=== PATIENT | female | born 1985 | race Caucasian/White ===

== ENCOUNTER 2020-09-27 11:41 | Day surgery (SDC) | payer MEDICAID, SELFPAY ==
[2020-09-27] VITALS (8 sets, daily range): BP systolic 116–137; BP diastolic 64–85; PULSE 84–110; RESP 16–20; TEMP 36.5–36.9; O2SAT 94–100; BMI 20.7
--- NOTE | 2020-09-27 12:01 | ED_ITS ---
HPI - General Adult General: Chief complaint: Airway/Esophagus Foreign Body Stated complaint: FB IN THROAT Time Seen by Provider: 09/27/20 11:56 Source: patient Mode of arrival: ambulatory Limitations: no limitations History of Present Illness: HPI narrative: 35-year-old female who states she ate dinner meat last night felt like got stuck in her throat. States she has not been able to swallow any liquids or solids since then. She states she has the sensation of the foreign body in her throat as well. She denies any worsening or improving factors. Denies any vomiting or shortness of breath. Associated symptoms: Deny chest pain, dyspnea, headache(s), nausea, rash or vomiting Review of Systems Const: Denies: fever(s), chills, body aches or change in appetite Eyes: Denies: blurry vision or eye discomfort ENMT: Denies: throat pain or dental pain Card: Denies: chest pain Resp: Denies: dyspnea GI: Denies: abdominal pain, nausea, vomiting or diarrhea : Denies: dysuria Musc: Denies: neck pain or back pain Skin/Breast: Denies: rash Neuro: Denies: headache(s) Psych: Denies: depression Reinaldo/Lymph: Denies: easy bruising All/Imm: Denies: urticaria Physical Exam Const: COMMON NORMALS: no acute distress, patient oriented x3 and healthy appearing HENMT: COMMON NORMALS: normocephalic and atraumatic HEAD & SCALP: normocephalic and atraumatic Eye: COMMON NORMALS: Equal, round and reactive pupils present and EOMs intact bilaterally PUPIL: Yes Equal, round and reactive pupils present Neck/C-Spine: COMMON NORMALS: full ROM and supple Chest: COMMONS NORMALS: normal inspection of the chest and normal palpation of entire chest wall Resp: COMMON NORMALS: normal respiratory effort, No retractions, No use of accessory muscles and clear to auscultation bilaterally AUSCULTATION: clear to auscultation bilaterally Cardio: COMMON NORMALS: regular rate, regular rhythm and No murmurs present (Cardio) RATE: regular rate RHYTHM: regular rhythm GI: COMMON NORMALS: Normal to inspection, nondistended, normoactive bowel sounds present, Soft to palpation, non-tender and no masses PALPATION: Yes Soft to palpation Extremity: COMMON NORMALS: normal to inspection and full ROM Neuro: COMMON NORMALS: patient oriented x3, moves all extremities and no focal motor deficits Psych: COMMON NORMALS: mental status grossly normal, Normal thought process present and cooperative THOUGHT PROCESS: Normal thought process present Skin: COMMON NORMALS: no rashes or lesions noted and no wounds GENERAL SKIN EXAM: no rashes or lesions noted Course Vital Signs: Vital signs: Vital Signs Temperature 97.7 F 09/27/20 11:52 Pulse Rate 96 09/27/20 12:15 Respiratory Rate 18 09/27/20 12:15 Blood Pressure 120/80 09/27/20 12:15 Pulse Oximetry 96 09/27/20 12:15 MDM - General Adult MDM Narrative: Medical decision making narrative: Patient presents here with an esophageal food bolus. I spoke to Dr. Arnett who is going to take her to the GI lab. Patient has been stable while here. Discharge Plan Discharge Prescriptions: No Action Multi For Her 18 mg iron-600 mcg-40 mcg Capsule 1 tab-cap PO DAILY RF: 0 Coding Level of Care Code ED Printed Circuit Board Designer for Chg Fwd Exam Comprehensive
[2020-09-27] MEDS: nitroglycerin 0.4 mg sublingual Tablet SUBLINGUAL (12:17)
[2020-09-27] MEDS: ondansetron 2 mg/ML SDV 2 mL 4 MG IVP (14:13)
--- NOTE | 2020-09-27 14:29 | P.CONIM_ITS ---
Providers/Reason For Consult Consulting Physican/Specialty*: Internal medicine/endoscopy Reason for Consult*: Presumed impacted piece of venison in the lower esophagus. Attending Physician: Jesus Arnett MD History of Present Illness History of Present Illness Anastasiya Robles is a 35 year old female who presents to the emergency depar tment after her last night eating supper and feeling as if a piece of venison that she was eating became lodged in her lower esophagus. She was hopeful that it would dislodge itself overnight, mitchell it seems to have not. She states that she is unable to tolerate any liquids and feels like it still hung in her esophagus. She states that this is happened a few times in the past. She is even had to have her esophagus dilated in the past as well. She says she takes Tums a lot, and the occasional PPI, but takes nothing regularly. Review of Systems General: Reports: 10 or more systems reviewed and unremarkable except in HPI and below Meds/Allergies Home Medications and Allergies Home Medications Medication Instructions Recorded Confirmed Last Taken Type vktywyfoldvo-wwy-abdc-FA-vit K 1 tab-cap PO DAILY 09/27/20 09/27/20 Unknown History [Multi For Her] Allergies Allergy/AdvReac Type Severity Reaction Status Date / Time levofloxacin [From Levaquin] Allergy Jef Verified 09/27/20 11:56 Lip/Tongue/Throat Penicillins Allergy Jef Verified 09/27/20 11:56 Lip/Tongue/Throat Vitals/I&O/Wt Last Vital Signs Temp 97.7 F 09/27/20 11:52 Pulse 110 H 09/27/20 14:09 Resp 18 09/27/20 14:09 BP 127/64 09/27/20 14:09 Pulse Ox 97 09/27/20 14:09 Weight last 48 hrs Weight 140 lb Physical Exam Const: COMMON NORMALS: no acute distress Neck/C-Spine: COMMON NORMALS: no JVD Resp: COMMON NORMALS: normal respiratory effort, No retractions, No use of accessory muscles, clear to auscultation bilaterally and percussion normal AUSCULTATION: clear to auscultation bilaterally PERCUSSION: percussion normal Cardio: COMMON NORMALS: no JVD, regular rate, regular rhythm, S1 normal heart sound present, S2 normal heart sound present, No gallops present (Cardio), No clicks present (Cardio), No murmurs present (Cardio), No rub (Cardio) and Peripheral pulses 2+ throughout RATE: regular rate RHYTHM: regular rhythm HEART SOUNDS: S1 normal heart sound present and S2 normal heart sound present PERIPHERAL PULSES: Peripheral pulses 2+ throughout GI: COMMON NORMALS: Normal to inspection, nondistended, normoactive bowel sounds present, Soft to palpation, non-tender, No hepatosplenomegaly present, no masses and no bruits PALPATION: Yes Soft to palpation and Yes No hepatosplenomegaly present A&P Assessment and plan (1) Esophageal obstruction due to food impaction: Status: Acute Additional A&P Information We will plan for urgent EGD with anesthesia and an airway in the operating room for removal of said foreign body. I informed her that we will probably not do any sort of dilatation on this exam as I expect her esophagus to be swollen and macerated from the long-term impaction of the food. We will have her back and revisit this after we resolve the meat impaction. Coding Level of Care Code Acute Freight Air Brake Fitter for Chg Fwd Exam Detailed Diagnoses Esophageal obstruction due to food impaction K22.2; T18.128A Comment Please allow Gloria Buck to process this consult
--- NOTE | 2020-09-27 14:33 | ANES.PREANE2 ---
Pre-Anesthetic Assessment Pre-Anesthetic Assessment: Height/Weight: Height 1.75 m Weight 63.503 kg Temp Pulse Resp BP Pulse Ox 97.7 F 110 H 18 127/64 97 09/27/20 11:52 09/27/20 14:09 09/27/20 14:09 09/27/20 14:09 09/27/20 14:09 Preop Diagnosis: None Proposed Procedure: Operation Date: 09/27/20 15:00 Proposed Procedures p EGD(Not Applicable) - Jesus Arnett MD Familial anesthetic complications: None Was Beta Aby taken within 24 hours: N/A Last intake: NPO > 8 hrs, but likely food bolus in esophagus Social: Social History: No alcohol and No tobacco Exam: Pre-Anes Outpt Exam: alert, oriented x 3, clear to auscultation bilaterally and regular rate & rhythm Airway: Cervical ROM: WNL MP: 1 Dentition: Full Anesthetic Plan: ASA status: 1 Anesthesia: General Risk of > 500 ml blood loss (7ml/kg in children): No Data Anesthesia Cardiac Studies: No Data to Display
[2020-09-27 14:35] LABS: OR HCG Qualitative Urine Negative (Negative)
[2020-09-27] MEDS: sodium chloride 0.9% 1,000 ML 30 ML IV (14:54)
== END 2020-09-27 17:14 | disposition home or self-care (01) ==
LOC: ER 12:05 → GILAB 13:24
PROVIDERS: Emergency Provider Emergency Medicine; Visit Provider Internal Medicine
PROC: 0DJ08ZZ Inspection of Upper Intestinal Tract, Via Natural or Artificial Opening Endoscopic (ICD-10-PCS; CPT 43235; principal; 2020-09-27 15:00)
DX: T18.128A Food in esophagus causing other injury, initial encounter (principal); X58.XXXA Exposure to other specified factors, initial encounter; K22.2 Esophageal obstruction
CPT/HCPCS: 12345; 43247; 84703; 96372; 99282; J0330; J1100; J1610; J2405; J2704; J7030

== ENCOUNTER → 2021-11-23 09:40 | Outpatient (BNVA) | payer BC, MEDICAID, SELFPAY | PROVIDERS: PCP Family Medicine; Visit Provider Internal Medicine | DX: Z20.822 Contact with and (suspected) exposure to COVID-19 (principal) | CPT/HCPCS: 87635 ==

== ENCOUNTER 2021-11-29 05:59 | Day surgery (SDC) | payer BC, MEDICAID, SELFPAY ==
[2021-11-24 14:02] VITALS: BMI 23.6
[2021-11-29 06:12] VITALS: BP 139/99; PULSE 78; RESP 18; TEMP 36.8; O2SAT 98
[2021-11-29 06:22] LABS: OR HCG Qualitative Urine Negative (Negative)
[2021-11-29] MEDS: sodium chloride 0.9% 1,000 ML 30 ML IV (06:28)
--- NOTE | 2021-11-29 06:54 | ANES.PREANE2 ---
Pre-Anesthetic Assessment Pre-Anesthetic Assessment: Height/Weight: Height 1.75 m Weight 72.575 kg Temp Pulse Resp BP Pulse Ox 98.2 F 78 18 139/99 98 11/29/21 06:12 11/29/21 06:12 11/29/21 06:12 11/29/21 06:12 11/29/21 06:12 Preop Diagnosis: esoph ring Proposed Procedure: Operation Date: 11/29/21 07:00 Proposed Procedures p Esophageal with bougie dilatation 97729/ K22.2(Not Applicable) - Jesus Arnett MD Familial anesthetic complications: none Was Beta Aby taken within 24 hours: N/A Was Clonidine taken within 24 hours: N/A Last intake: Intake Last Liquid Date 11/29/21 Last Liquid Time 20:00 Last Solid Date 11/28/21 Last Solid Time 18:30 Last Intake: 20:00 Social: Social History: No alcohol and No tobacco Exam: Pre-Anes Outpt Exam: alert, oriented x 3, clear to auscultation bilaterally and regular rate & rhythm Airway: Submandibular: WNL Cervical ROM: WNL MP: 1 Dentition: Full Pulmonary: Pulmonary: None reported CV/HEM: CV/HEM: None reported : : None reported Hepatic: Hepatic: None reported GI: GI: GERD Metabolic: Metabolic: None reported Musc/skel: Musc/skel: None reported Neuropsych: Neuropsych: GRAVES (every 2-3 months) Anesthetic Plan: ASA status: 1 Anesthesia: MAC Medications/Allergies Current Medications: Current Medications Generic Name Dose Route Start Last Admin Trade Name Freq PRN Reason Stop Dose Admin Sodium Chloride 1,000 mls @ 30 ml s/hr 11/29/21 06:15 11/29/21 06:28 Sodium Chloride 0.9% IV 30 mls/hr .Q24H SILVERIO Administration PFSH Anesthesia PFSH: Medical History Esophageal obstruction due to food impaction Family History Mother Cancer Grandmother Cancer Heart disease Grandfather Heart disease Social History Smoking and tobacco status: never smoked Adopted: No Marital status: Number of children: 4 service: No History of recent travel: No Current gender identity: Female Data Anesthesia Other Labs: Laboratory Results - last 48 hr 11/29/21 06:21 Urine HCG, Qual Negative Cardiac Studies: No Data to Display
--- NOTE | 2021-11-29 07:07 | W.PM.OPSFHP ---
Same Day Surgery H&P Indication for Procedure/HPI DATE OF PROCEDURE: November 29, 2021 CHIEF COMPLAINT/INDICATIONFOR SURGICAL PROCEDURE: Esophageal ring PREOP DIAGNOSIS: esoph ring PLANNED PROCEDURE: Operation Date: 11/29/21 07:00 Proposed Procedures p Esophageal with bougie dilatation 84774/ K22.2(Not Applicable) - Jesus Arnett MD Medications/Allergies* Home Medications Medication Instructions Recorded Confirmed Type Multi For Her 1 tab-cap PO DAILY 09/27/20 11/29/21 History Allergies/Adverse Reactions Allergy/AdvReac Type Severity Reaction Status Date / Time levofloxacin [From Levaquin] Allergy ALGY-Swell Verified 09/30/21 13:03 Lip/Tongue/Throat Penicillins Allergy ALGY-Swell Verified 09/30/21 13:03 Lip/Tongue/Throat Current Medications: Generic Name Dose Route Start Last Admin Trade Name Freq PRN Reason Stop Dose Admin Sodium Chloride 1,000 mls @ 30 mls/hr 11/29/21 06:15 11/29/21 06:28 Sodium Chloride 0.9% IV 30 mls/hr .Q24H SILVERIO Administration Pertinent History/Comorbid Conditions* Medical History (Updated 09/30/21 @ 13:35 by Jesus Arnett MD) Esophageal obstruction due to food impaction Family History (Updated 10/12/20 @ 15:24 by RICARDO Montelongo) Heart disease Grandmother Grandfather Cancer Mother Grandmother Social History Smoking and tobacco status: never smoked Adopted: No Marital status: Number of children: 4 service: No History of recent travel: No Current gender identity: Female Pertinent Exam Findings alert, oriented x 3, clear to auscultation bilaterally, regular rate & rhythm, operative site marked and procedure specific exam findings Recommendations Surgery/Procedure today Coding Level of Care Code Acute Grain Oilseed Or Pasture Grower for Mauricio Giang
[2021-11-29 07:25] VITALS: BP 105/80; PULSE 96; RESP 18; TEMP 36.6; O2SAT 97
[2021-11-29 07:45] VITALS: BP 105/82; PULSE 83; RESP 16; O2SAT 98
--- NOTE | 2021-11-29 14:11 | ANE.PACU2 ---
Inpatient post-anesthesia follow up: Airway intact: Yes Vital signs: Temperature 97.8 F Pulse Rate 83 Respiratory Rate 16 Blood Pressure 105/82 Pulse Oximetry 98 Oxygen Delivery Me thod Room Air Oxygen Flow Rate Fraction of Inspir ed Oxygen Hydration adequate: Yes Nausea and vomiting: No Pain level: 1 Mental status: Baseline
== END 2021-11-29 07:49 | disposition home or self-care (01) ==
PROVIDERS: Anesthesiology; PCP Family Medicine; Visit Provider Internal Medicine
DX: K22.2 Esophageal obstruction (principal); K29.70 Gastritis, unspecified, without bleeding; K21.9 Gastro-esophageal reflux disease without esophagitis
CPT/HCPCS: 43235; 81025; 84703; J2704; J7030

== ENCOUNTER 2021-12-08 11:21 | Outpatient (CLI) | payer BC, MEDICAID, SELFPAY ==
--- NOTE | 2021-12-08 11:32 | XR_ITS ---
WS: [id number] Acute abdomen series, 12/08/2021 Clinical Data: ACUTE CYSTITIS Comparison: KUB, 01/02/2012. Findings: In the chest there are no nodules, masses or effusions. The heart is normal. The pulmonary vascularity is not increased. 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 No free air is seen beneath the diaphragms. No abnormal intra-abdominal masses or calcifications are seen. There is a moderate amount of fecal material throughout the colon. There are scattered air-flui d levels in the abdomen. XR/XR acute abdomen series 62917 Impression: 1. Negative chest. 2. Moderate amount of fecal material in the colon.
== END 2021-12-08 11:22 | disposition home or self-care (01) ==
LOC: RAD 11:30
PROVIDERS: PCP Family Medicine; Visit Provider Clinical Nurse Specialist Adult Health
DX: N30.00 Acute cystitis without hematuria (principal)
CPT/HCPCS: 74022

== ENCOUNTER 2022-03-20 10:27 | Day surgery (SDC) | payer BC, MEDICAID, SELFPAY ==
[2022-03-20 10:49] VITALS: BP 137/85; PULSE 91; RESP 18; O2SAT 96; BMI 23.6
[2022-03-20 10:55] VITALS: BP 137/93; PULSE 86; RESP 18; TEMP 37.3; O2SAT 99
[2022-03-20 11:02] VITALS: BP 127/68; PULSE 66; RESP 18; TEMP 36.6; O2SAT 96
--- NOTE | 2022-03-20 11:03 | ED_ITS ---
HPI - General Adult General: Chief complaint: Airway/Esophagus Foreign Body Stated complaint: something stuck in throat Time Seen by Provider: 03/20/22 10:39 History of Present Illness: She comes in stating that she had a piece of steak stuck in her throat last night and has not been able to swallow since then. Patient is just spitting up. Denies any problems breathing. Patient has had this happen twice in the past. Last time she had to have scope done to push this down. Associated symptoms: Deny chest pain, dyspnea, headache(s), nausea, rash or vomiting Review of Systems Const: Denies: fever(s), chills or body aches Eyes: Denies: eye discomfort ENMT: Reports: other (Has meat stuck in her throat. This occurred last night.); Denies: throat pain Card: Denies: chest pain Resp: Denies: dyspnea GI: Denies: abdominal pain, nausea or vomiting Skin/Breast: Denies: rash Neuro: Denies: headache(s) Psych: Denies: depression or suicidal ideation PFSH ED PFSH: Medical History Esophageal obstruction due to food impaction Family History Mother Cancer Grandmother Cancer Heart disease Grandfather Heart disease Social History Smoking and tobacco status: never smoked Adopted: No Marital status: Number of children: 4 service: No History of recent travel: No Current gender identity: Female Physical Exam Const: COMMON NORMALS: no acute distress, patient oriented x3 and alert HENMT: COMMON NORMALS: normocephalic and external ears normal HEAD & SCALP: normocephalic EXTERNAL EAR: Yes external ears normal Eye: COMMON NORMALS: EOMs intact bilaterally Neck/C-Spine: COMMON NORMALS: no JVD Resp: COMMON NORMALS: normal respiratory effort and No use of accessory muscles Cardio: COMMON NORMALS: no JVD GI: INSPECTION: Yes normal to inspection Extremity: COMMON NORMALS: normal to inspection and full ROM Neuro: COMMON NORMALS: patient oriented x3 SENSORIUM/ORIENTATION: Yes alert Psych: COMMON NORMALS: mental status grossly normal Skin: COMMON NORMALS: no rashes or lesions noted GENERAL SKIN EXAM: no rashes or lesions noted Course Vital Signs: Vital signs: Vital Signs Pulse Rate 91 03/20/22 10:49 Respiratory Rate 18 03/20/22 10:49 Blood Pressure 137/85 03/20/22 10:49 Pulse Oximetry 96 03/20/22 10:49 MDM - General Adult Medical Decision Making I spoke with Dr. oCle and with Dr. Madison. Dr. Madison is coming in to do a scope on her. Discharge Plan Discharge Condition: Stable Prescriptions: No Action pantoprazole 40 mg tablet,delayed release (DR/EC) 40 mg PO BID Qty: 180 3RF Multi For Her 18 mg iron-600 mcg-40 mcg Capsule 1 tab-cap PO DAILY 0RF Referrals: Bebeto Olivas MD [Primary Care Provider] - Coding Level of Care Code ED Certified Diabetes Educator for Mauricio Giang
[2022-03-20] MEDS: sodium chloride 0.9% 1,000 ML 100 ML IV (11:14)
--- NOTE | 2022-03-20 11:32 | P.CONIM_ITS ---
Providers/Reason For Consult Consulting Physician/Specialty*: Endoscopist Reason for Consult*: Food bolus impaction in esophagus Requesting Physician: Perry Sandhu /Dr. Henry Attending Physician: Moisés Madison MD Primary Care Provider: Bebeot Olivas MD History of Present Illness History of Present Illness Anastasiya Robles is a 37 year old female who presented to the emergency room complaining that food was stuck in her throat. Last night, she was eating steak. She said she took a small bite and she felt to get stuck in her throat. Since that time, she was hoping that it would dislodge without further intervention. Unfortunately, it has not improved throughout the night. She cannot swallow her spit. She has no difficulty breathing. The patient has had multiple episodes of having impactions of food in her e sophagus in the past. She has had 2 other episodes of requiring an EGD to disimpact her food over the last couple of years. Review of Systems General: Reports: 10 or more systems reviewed and unremarkable except in HPI and below Const: Denies: fever(s) Card: Denies: chest pain or irregular heart rhythm Resp: Denies: dyspnea Medications/Allergies Home Medications Medication Instructions Recorded Confirmed Last Taken Type zdgrllanw-kfn-qxya fumarate 18 1 tab-cap PO DAILY 09/27/20 12/30/21 11/28/21 History mg-FA 600 mcg-vit K 40 mcg capsule (Multi For Her) pantoprazole 40 mg tablet,delayed 40 mg PO BID #180 tab 12/30/21 12/30/21 Unknown Rx release Allergies Allergy/AdvReac Type Severity Reaction Status Date / Time levofloxacin [From Levaquin] Allergy ALGY-Swell Verified 12/30/21 13:42 Lip/Tongue/Throat Penicillins Allergy ALGY-Swell Verified 09/30/21 13:03 Lip/Tongue/Throat Current Medications Generic Name Dose Route Start Last Admin Trade Name Freq PRN Reason Stop Dose Admin Sodium Chloride 1,000 mls @ 100 mls/hr 03/20/22 11:15 03/20/22 11:14 Sodium Chloride 0.9% IV 100 mls/hr .Q10H SILVERIO Administration PFSH Acute PFSH: Medical History (Updated 03/20/22 @ 11:37 by Moisés Madison MD) Esophageal obstruction due to food impaction Family History (Updated 03/20/22 @ 11:37 by Moisés Madison MD) Mother Cancer Grandmother Cancer Heart disease Esophageal obstruction due to food impaction Grandfather Heart disease Social History Smoking and tobacco status: never smoked Adopted: No Marital status: Number of children: 4 service: No History of recent travel: No Current gender identity: Female Vitals/I&O/Wt Last Vital Signs Temp 98 F 03/20/22 11:02 Pulse 66 03/20/22 11:02 Resp 18 03/20/22 11:02 BP 127/68 03/20/22 11:02 Pulse Ox 96 03/20/22 11:02 Weight last 48 hrs Weight 160 lb Physical Exam Const: COMMON NORMALS: no acute distress and patient oriented x3 GENERAL APPEARANCE: cooperative, comfortable and well developed HENMT: COMMON NORMALS: normocephalic and moist oral mucous membranes HEAD & SCALP: normocephalic Chest: COMMONS NORMALS: normal inspection of the chest Resp: COMMON NORMALS: normal respiratory effort and clear to auscultation bilaterally AUSCULTATION: clear to auscultation bilaterally Cardio: COMMON NORMALS: regular rate, regular rhythm, No gallops present (Cardio), No murmurs present (Cardio) and No rub (Cardio) RATE: regular rate RHYTHM: regular rhythm Extremity: COMMON NORMALS: normal to inspection Neuro: COMMON NORMALS: patient oriented x3 and no focal motor deficits Skin: COMMON NORMALS: no rashes or lesions noted GENERAL SKIN EXAM: no rashes or lesions noted A&P Assessment and plan (1) Esophageal obstruction due to food impaction: The patient will be given glucagon. If we do not see a response within the next half hour, we will proceed with an EGD. Given her history of glucagon not being successful, we are proceeding as if it will not be successful at this time. If I am able to easily push the food bolus down through her esophagus, then we will only use light sedation. If that is not successful, we will have the patient intubated, and I will remove the obstruction piecemeal. I discussed the risks of the procedure with the patient and her . We discussed the risks of perforation, bleeding, and aspiration. They had no further questions and wished to proceed. Status: Acute (2) Esophageal ring, acquired: Status: Acute (3) GERD (gastroesophageal reflux disease): Status: Acute Consult Attestations Medical Necessity Statement: I anticipate the patient will be discharged home today postprocedure as long as the patient tolerates the procedure well and there are no complications. Coding Level of Care Code Acute Registration Scheduling Specialist for Chg Fwd Diagnoses Esophageal obstruction due to food impaction K22.2; T18.128A Esophageal ring, acquired K22.2 GERD (gastroesophageal reflux disease) K21.9
--- NOTE | 2022-03-20 12:02 | ANES.PREANE2 ---
Pre-Anesthetic Assessment Height/Weight: Height 1.75 m Weight 72.575 kg Temp Pulse Resp BP Pulse Ox 98 F 66 18 127/68 96 03/20/22 11:02 03/20/22 11:02 03/20/22 11:02 03/20/22 11:02 03/20/22 11:02 Preop Diagnosis: esoph ring Operation Date: 03/20/22 12:00 Proposed Procedures p Foreign Body Removal(Not Applicable) - Moisés Madison MD Familial anesthetic complications: None Was Beta Aby taken within 24 hours: N/A Was Clonidine taken within 24 hours: N/A Social No alcohol and No tobacco Exam alert, oriented x 3, clear to auscultation bilaterally and regular rate & rhythm Airway Submandibular: within normal limits Cervical ROM: within normal limits Mallampati: Class II Dentition: full GI Gastroesophageal Reflux Disease esophogeal ring Anesthetic Plan ASA status: 2E Anesthesia: Choice Medications/Allergies Home Medications Medication Instructions Recorded Confirmed Last Taken Type uvztoejwg-icp-ugyr fumarate 18 1 tab-cap PO DAILY 09/27/20 12/30/21 11/28/21 History mg-FA 600 mcg-vit K 40 mcg capsule (Multi For Her) pantoprazole 40 mg tablet,delayed 40 mg PO BID #180 tab 12/30/21 12/30/21 Unknown Rx release Allergies Allergy/AdvReac Type Severity Reaction Status Date / Time levofloxacin [From Levaquin] Allergy BRANDONY-Swell Verified 12/30/21 13:42 Lip/Tongue/Throat Penicillins Allergy ALGY-Swell Verified 09/30/21 13:03 Lip/Tongue/Throat Current Medications Generic Name Dose Route Start Last Admin Trade Name Freq PRN Reason Stop Dose Admin Sodium Chloride 1,000 mls @ 100 mls/hr 03/20/22 11:15 03/20/22 11:14 Sodium Chloride 0.9% IV 100 mls/hr .Q10H SILVERIO Administration PFSH Anesthesia Medical History (Updated 03/20/22 @ 11:37 by Moisés Madison MD) Esophageal obstruction due to food impaction Family History (Updated 03/20/22 @ 11:37 by Moisés Madison MD) Mother Cancer Grandmother Cancer Heart disease Esophageal obstruction due to food impaction Grandfather Heart disease Social History Smoking and tobacco status: never smoked Adopted: No Marital status: Number of children: 4 service: No History of recent travel: No Current gender identity: Female Data Anesthesia Cardiac Studies: No Data to Display
[2022-03-20 12:08] VITALS: BP 136/81; PULSE 101; RESP 16; TEMP 37.2; O2SAT 99
[2022-03-20] MEDS: sodium chloride 0.9% 1,000 ML 30 ML IV (12:15)
[2022-03-20 12:30] VITALS: BP 142/65; PULSE 110; RESP 12; TEMP 36.5; O2SAT 100
--- NOTE | 2022-03-20 12:33 | ANE.PACU2 ---
Inpatient post-anesthesia follow up: Airway intact: Yes Vital signs: Temperature 97.7 F Pulse Rate 110 Respiratory Rate 12 Blood Pressure 142/65 Pulse Oximetry 100 Oxygen Delivery Me thod Room Air Oxygen Flow Rate Fraction of Inspir ed Oxygen Hydration adequate: Yes Nausea and vomiting: No Pain level: 1 Mental status: Baseline
[2022-03-20 12:38] VITALS: BP 101/64; PULSE 95; RESP 16; O2SAT 98
== END 2022-03-20 13:00 | disposition home or self-care (01) ==
LOC: ER 11:04 → GILAB 11:14
PROVIDERS: Emergency Provider Nurse Practitioner Family; PCP Family Medicine; Visit Provider Family Medicine
DX: T18.128A Food in esophagus causing other injury, initial encounter (principal); K22.2 Esophageal obstruction; K21.9 Gastro-esophageal reflux disease without esophagitis
CPT/HCPCS: 12345; 43247; J0330; J1610; J2704; J7030

== ENCOUNTER 2022-04-17 11:01 | Emergency (ER) | payer BC, MEDICAID, SELFPAY ==
[2022-04-17 11:08] VITALS: BP 165/102; PULSE 80; RESP 12; TEMP 36.6; O2SAT 98; BMI 24.3
--- NOTE | 2022-04-17 11:19 | CTR_ITS ---
PROCEDURE INFORMATION: Exam: CT Abdomen And Pelvis Without Contrast Exam date and time: 04/17/2022 12:32 PM Age: 37 years old Clinical indication: Abdominal pain; Flank; Left; Prior surgery; Surgery date: 6+ months; Surgery type: Appy, tubal; Additional info: Flank pain TECHNIQUE: Imaging protocol: Computed tomography of the abdomen and pelvis without contrast. Radiation optimization: All CT scans at this facility use at least one of these dose optimization techniques: automated exposure control; mA and/or kV adjustment per patient size (includes targeted exams where dose is matched to clinical indication); or iterative reconstruction. COMPARISON: CR XR acute abdomen series [id number] 12/08/2021 11:36 AM RADIATION DOSE METRICS: Total DLP (mGy-cm): 961.32 FINDINGS: Liver: Normal. No mass. Gallbladder and bile ducts: Normal. No calcified stones. No ductal dilation. Pancreas: Normal. No ductal dilation. Spleen: Normal. No splenomegaly. Adrenal glands: Normal. No mass. Kidneys and ureters: There is a 3 mm calculus at the left ureterovesical junction with mild hydronephrosis and hydroureter. No calcifications are seen in the kidneys. There is no hydronephrosis on the right side. Stomach and bowel: Unremarkable. No obstruction. No mucosal thickening. Appendix: No evidence of appendicitis. Intraperitoneal space: Unremarkable. No free air. No significant fluid collection. Vasculature: Unremarkable. No abdominal aortic aneurysm. Lymph nodes: Unremarkable. No enlarged lymph nodes. Urinary bladder: Unremarkable as visualized. Reproductive: Unremarkable as visualized. Bones/joints: Unremarkable. No acute fracture. Soft tissues: Unremarkable. CT/CT kidney stone [id number] IMPRESSION: There is a 3 mm calculus at the left ureterovesical junction with mild left hydronephrosis and hydroureter.
--- NOTE | 2022-04-17 11:30 | ED_ITS ---
HPI - Abdominal Pain General: Chief Complaint: Abdominal Pain Stated Complaint: Abd Pain, lower back pain, N/V Time Seen by Provider: 04/17/22 11:15 Source: patient Mode of arrival: ambulatory Limitations: no limitations History of Present Illness: 37-year-old female states that she has been having left-sided flank and abdominal pain since Monday. States pain has been a sharp causing her some nausea. She denies any fever. States she has had difficulty urinating states that she has had painful urination states that has been urinating razor blades. She denies any worsening factors denies any diarrhea or vomiting. Associated Symptoms: Reports nausea; Denies chills, diarrhea, dysuria, fever(s) and vomiting Related Data: Date of Last Menstrual Period: 03/27/22 Review of Systems Const: Denies: fever(s), chills, body aches or change in appetite Eyes: Denies: blurry vision or eye discomfort ENMT: Denies: throat pain or dental pain Card: Denies: chest pain Resp: Denies: dyspnea GI: Reports: abdominal pain and nausea; Denies: vomiting or diarrhea : Denies: dysuria Musc: Denies: neck pain or back pain Skin/Breast: Denies: rash Neuro: Denies: headache(s) Psych: Denies: depression Reinaldo/Lymph: Denies: easy bruising All/Imm: Denies: urticaria PFSH ED PFSH: Medical History Esophageal obstruction due to food impaction Family History Mother Cancer Grandmother Cancer Heart disease Esophageal obstruction due to food impaction Grandfather Heart disease Social History Smoking and tobacco status: never smoked Adopted: No Marital status: Number of children: 4 service: No History of recent travel: No Current gender identity: Female Female Reproductive History: Date of last menstrual period: 03/27/22 Physical Exam Const: COMMON NORMALS: no acute distress, patient oriented x3 and healthy appearing HENMT: COMMON NORMALS: normocephalic and atraumatic HEAD & SCALP: normocephalic and atraumatic Eye: COMMON NORMALS: Equal, round and reactive pupils present and EOMs intact bilaterally PUPIL: Yes Equal, round and reactive pupils present Neck/C-Spine: COMMON NORMALS: full ROM and supple Chest: COMMONS NORMALS: normal inspection of the chest and normal palpation of entire chest wall Resp: COMMON NORMALS: normal respiratory effort, No retractions, No use of accessory muscles and clear to auscultation bilaterally AUSCULTATION: clear to auscultation bilaterally Cardio: COMMON NORMALS: regular rate, regular rhythm and No murmurs present (Cardio) RATE: regular rate RHYTHM: regular rhythm GI: COMMON NORMALS: Normal to inspection, nondistended, normoactive bowel sounds present, Soft to palpation, non-tender and no masses PALPATION: Yes Soft to palpation : COMMON NORMALS: No no CVA tenderness BLADDER/KIDNEY EXAM: No no CVA tenderness and Yes CVA tenderness on the left Back/Pelvis: COMMON NORMALS: negative for no CVA tenderness GENERAL BACK: Yes CVA tenderness Extremity: COMMON NORMALS: normal to inspection and full ROM Neuro: COMMON NORMALS: patient oriented x3, moves all extremities and no focal motor deficits Psych: COMMON NORMALS: mental status grossly normal, Normal thought process present and cooperative THOUGHT PROCESS: Normal thought process present Skin: COMMON NORMALS: no rashes or lesions noted and no wounds GENERAL SKIN EXAM: no rashes or lesions noted Course Vital Signs: Vital signs: Vital Signs Temperature 97.9 F 04/17/22 11:08 Pulse Rate 80 04/17/22 11:08 Respiratory Rate 17 04/17/22 12:50 Blood Pressure 165/102 04/17/22 11:08 Pulse Oximetry 98 04/17/22 11:08 MDM - Abdominal Pain Medical Decision Making Patient presents here with flank pain is found to have a kidney stone in the UPJ she should feel the passing stone her pain is much improved. No signs of infection. We will prescribe her hydrocodone for home she is to follow-up with urology and return if worsening she understands agrees to plan. Lab Data : 04/17/22 11:35 04/17/22 11:35 Labs/Radiology: Radiology Impressions Abdomen/Pelvis CT 04/17/22 11:19 IMPRESSION: There is a 3 mm calculus at the left ureterovesical junction with mild left hydronephrosis and hydroureter. Laboratory Results WBC 9.9 10^3/uL (4.0-10.0) 04/17/22 11:35 RBC 4.87 10^6/uL (4.1-5.3) 04/17/22 11:35 Hgb 15.3 g/dL (11.5-15.3) 04/17/22 11:35 Hct 45.1 % (37.0-47.0) 04/17/22 11:35 MCV 92.6 fl (81-99) 04/17/22 11:35 MCH 31.4 pg (28.0-34.0) 04/17/22 11:35 MCHC 33.9 g/dL (30.0-36.0) 04/17/22 11:35 RDW 12.7 % (12.1-15.1) 04/17/22 11:35 Plt Count 253 10^3/cmm (130-400) 04/17/22 11:35 MPV 11.3 fL (7.4-10.4) H 04/17/22 11:35 Neut % (Auto) 74.6 % 04/17/22 11:35 Lymph % (Auto) 16.6 % 04/17/22 11:35 [place] % (Auto) 4.9 % 04/17/22 11:35 Eos % (Auto) 3.0 % 04/17/22 11:35 Baso % (Auto) 0.5 % 04/17/22 11:35 Neut # (Auto) 7.38 10^3/uL (1.8-7.7) 04/17/22 11:35 Lymph # (Auto) 1.6 10^3/uL (0.8-4.8) 04/17/22 11:35 [place] # (Auto) 0.5 10^3/uL (0.2-0.9) 04/17/22 11:35 Eos # (Auto) 0.3 10^3/uL (0.0-0.8) 04/17/22 11:35 Baso # (Auto) 0.1 10^3/uL (0.0-0.1) 04/17/22 11:35 Nucleated RBC % (auto) 0 % 04/17/22 11:35 Nucleated RBCs # 0.0 /100WBC 04/17/22 11:35 Sodium 135 mmol/L (136-145) L 04/17/22 11:35 Potassium 3.8 mmol/L (3.5-5.1) 04/17/22 11:35 Chloride 102 mmol/L (98-107) 04/17/22 11:35 Carbon Dioxide 25 mmol/L (22-29) 04/17/22 11:35 Anion Gap 11.8 (5-19) 04/17/22 11:35 BUN 10 mg/dL (6-20) 04/17/22 11:35 Creatinine 0.7 mg/dL (0.5-0.9) 04/17/22 11:35 GFR Calculation 93.6 mL/min (90-130) 04/17/22 11:35 Glucose 99 mg/dL (65-115) 04/17/22 11:35 Calculated Osmolality 279 mOsm/kg (285-295) L 04/17/22 11:35 Calcium 9.0 mg/dL (8.5-10.5) 04/17/22 11:35 Total Bilirubin 0.7 mg/dL (0.15-1.2) 04/17/22 11:35 AST 13 U/L (0-32) 04/17/22 11:35 ALT < 5 U/L (0-33) 04/17/22 11:35 Alkaline Phosphatase 61 IU/L (35-105) 04/17/22 11:35 Total Protein 7.6 g/dL (6.6-8.7) 04/17/22 11:35 Albumin 4.5 g/dL (3.5-5.2) 04/17/22 11:35 Globulin 3.1 g/dL (1.3-4.6) 04/17/22 11:35 Lipase 18 U/L (13-60) 04/17/22 11:35 HCG, Qual Negative (Negative) 04/17/22 11:35 Urine Color Yellow (Yellow) 04/17/22 11:35 Urine Appearance Clear (CLEAR) 04/17/22 11:35 Urine pH 6 (5-7) 04/17/22 11:35 Ur Specific [place] 1.020 (1.005-1.030) 04/17/22 11:35 Urine Protein Neg (Negative) 04/17/22 11:35 Urine Glucose (UA) Norm (Normal) 04/17/22 11:35 Urine Ketones Negative (Negative) 04/17/22 11:35 Urine Blood 3+ (Negative) H 04/17/22 11:35 Urine Nitrate Negative (Negative) 04/17/22 11:35 Urine Bilirubin Neg (Negative) 04/17/22 11:35 Urine Urobilinogen Norm mg/dL (Negative) 04/17/22 11:35 Ur Leukocyte Esterase Negative (Negative) 04/17/22 11:35 Urine RBC 5-10 /hpf (0-2) H 04/17/22 11:35 Urine WBC Rare /hpf (0-5) 04/17/22 11:35 Ur Squamous Epith Cells 10-15 /hpf (0-5) H 04/17/22 11:35 Amorphous Sediment Not Reportable 04/17/22 11:35 Urine Bacteria 1+ /hpf (NONE) H 04/17/22 11:35 Discharge Plan Discharge Patient Disposition: Home Clinical Impression: Kidney stone Condition: Stable Prescriptions: New hydrocodone-acetaminophen 5-325 mg tablet 1 tab PO Q6H PRN (Reason: pain) Qty: 14 0RF ondansetron 4 mg tablet,disintegrating 4 mg PO Q6H PRN (Reason: nausea and vomiting) Qty: 14 0RF No Action pantoprazole 40 mg tablet,delayed release (DR/EC) 40 mg PO BID Qty: 180 3RF Multi For Her 18 mg iron-600 mcg-40 mcg Capsule 1 tab-cap PO DAILY 0RF Discharge Orders: Discharge ED (Routine); Ordered 04/17/22 Ordered By: Maribel Henry Referrals: Derik Graves MD [Physician] - 1-3 days Bebeto Olivas MD [Primary Care Provider] - Discharge Diet: Advance as tolerated Discharge Activity: Resume usual activity Patient Instructions: Kidney Stones (ED), Opioid Safety Coding Level of Care Code ED Production Department Supervisor for Chg Fwd Exam Comprehensive
[2022-04-17 11:41] VITALS: RESP 18
[2022-04-17] MEDS: sodium chloride 0.9% 1,000 ML 999 ML IV (11:41)
[2022-04-17] MEDS: morphine 4 mg/mL SDV 1 mL IVP (11:41)
[2022-04-17] MEDS: ondansetron 2 mg/ML SDV 2 mL 4 MG IVP (11:41)
[2022-04-17 11:43] LABS: Basophils # 0.1 10^3/uL (0.0-0.1); Basophils % 0.5 %; Eosinophils # 0.3 10^3/uL (0.0-0.8); Hematocrit 45.1 % (37.0-47.0); Hemoglobin 15.3 g/dL (11.5-15.3); Lymphocytes # 1.6 10^3/uL (0.8-4.8); Lymphocytes % 16.6 %; Mean Corpuscular HGB Conc 33.9 g/dL (30.0-36.0); Mean Corpuscular Hemoglobin 31.4 pg (28.0-34.0); Mean Corpuscular Volume 92.6 fl (81-99); Mean Platelet Volume 11.3 fL (7.4-10.4); Monocytes # 0.5 10^3/uL (0.2-0.9); Monocytes % 4.9 %; Neutrophils # 7.38 10^3/uL (1.8-7.7); Neutrophils % 74.6 %; Nucleated Red Blood Cells % 0 %; Platelet Count 253 10^3/cmm (130-400); Red Blood Count 4.87 10^6/uL (4.1-5.3); Red Cell Distribution Width 12.7 % (12.1-15.1); White Blood Count 9.9 10^3/uL (4.0-10.0)
[2022-04-17 11:59] LABS: HCG, Serum Qual Negative (Negative)
[2022-04-17 12:05] LABS: Alanine Aminotransferase < 5 U/L (0-33); Albumin Level 4.5 g/dL (3.5-5.2); Alkaline Phosphatase 61 IU/L (35-105); Anion Gap 11.8 (5-19); Aspartate Amino Transferase 13 U/L (0-32); Blood Urea Nitrogen 10 mg/dL (6-20); Carbon Dioxide 25 mmol/L (22-29); Chloride 102 mmol/L (98-107); Globulin 3.1 g/dL (1.3-4.6); Glomerular Filtration Rate 93.6 mL/min (90-130); Glucose 99 mg/dL (65-115); Lipase 18 U/L (13-60); Osmolality Calculated 279 mOsm/kg (285-295); Potassium 3.8 mmol/L (3.5-5.1); Sodium 135 mmol/L (136-145); Total Bilirubin 0.7 mg/dL (0.15-1.2); Total Protein 7.6 g/dL (6.6-8.7); Urine Color Yellow (Yellow)
[2022-04-17 12:06] LABS: Add Urine Microscopic? YES; Bilirubin Urine Neg (Negative); Blood Urine 3+ (Negative); Glucose Urine UA Norm (Normal); Ketones Urine Negative (Negative); Leukocyte Esterase Urine Negative (Negative); Nitrate Urine Negative (Negative); Protein Urine Neg (Negative); Urine Appearance Clear (CLEAR); Urobilinogen Urine Norm (Negative); pH Urine 6 (5-7)
[2022-04-17 12:07] LABS: WBC Urine RARE /hpf (0-5)
[2022-04-17 12:08] LABS: Add Urine Culture? No; Bacteria Urine 1+ /hpf
[2022-04-17 12:50] VITALS: RESP 17
[2022-04-17] MEDS: HYDROmorphone 1 mg/mL INJ 1 mL IVP (12:50)
--- NOTE | 2022-04-18 13:43 | DCPLANNER ---
Addendum entered by Ibeth Soler 06/01/22 15:57: Patients appointment was cancelled Original Note: test engineering manager had message to schedule a follow up appointment for patient with urology. test engineering manager sent patients information to the front office staff at urology. Patients information will be printed and reviewed. Clinic will call patient with appointment information.
== END 2022-04-17 13:25 | disposition home or self-care (01) ==
PROVIDERS: Emergency Provider Emergency Medicine; PCP Family Medicine
DX: N20.0 Calculus of kidney (principal)
CPT/HCPCS: 74176; 80053; 81001; 83690; 84703; 85025; 96361; 96374; 96375; 99284; J1170; J2270; J2405; J7030

== ENCOUNTER 2022-04-27 11:07 | Outpatient (CLI) | payer BC, MEDICAID, SELFPAY ==
--- NOTE | 2022-04-27 11:12 | MM_ITS ---
WS: [id number] Bilateral screening 3D tomosynthesis digital mammogram, 04/27/2022 Clinical Data: SCREEN Comparison: None. Findings: The breast parenchymal pattern shows heterogeneous density No spiculated masses or clustered calcific ations are seen. There are no secondary signs of carcinoma. There are mole markers on both breasts. MM/[place] [id number] Impression: 1. Negative bilateral mammogram with no prior exam for review. 2. Recommend annual screening mammograms. 3. With a history of left breast pain recommend left breast ultrasound. BIRADS: 1-Negative FOLLOW UP: See Report The CAD grocery checker was used.
== END 2022-04-27 11:08 | disposition home or self-care (01) ==
LOC: RAD 11:08
PROVIDERS: PCP Family Medicine; Visit Provider Family Medicine
DX: Z12.31 Encounter for screening mammogram for malignant neoplasm of breast (principal)
CPT/HCPCS: 77063; 77067

== ENCOUNTER 2022-05-02 11:19 | Outpatient (CLI) | payer BC, MEDICAID, SELFPAY ==
--- NOTE | 2022-05-02 11:31 | US_ITS ---
WS: [id number] TRANSABDOMINAL PELVIC AND TRANSVAGINAL PELVIC ULTRASOUND HISTORY: LEFT SIDE OVARIAN CYST COMPARISON: 09/04/2019 Uterus: 9.6 cm x 4.7 cm x 4.4 cm. Uterus is mildly enlarged. Anteverted uterus with mild retroflexion on transabdominal imaging. Uterus is completely retroverted on transvaginal imaging. No fibroid or m ass. Endometrium: 0.4 cm. Normal homogeneity. A very tiny amount of fluid within the endometrial canal. Right ovary: 2.5 cm x 1.9 cm x 3.5 cm. Normal size and echogenicity. Normal vascularity. Left ovary: 3.5 cm x 3.7 cm x 2.4 cm. Normal size ovary. There is a very mildly complex cyst associat ed with the LEFT ovary measuring 2.7 x 1.4 x 2.6 cm. Normal vascularity within the adjacent ovary. Tiny amount of free fluid in the cul-de-sac. US/US pelvic with transvaginal IMPRESSION: 1. Normal endometrium. 2. Small hemorrhagic LEFT ovarian cysts. Probably collapsing hemorrhagic cyst. 3. Previously seen RIGHT ovarian cyst on the CT of 04/17/2022 has resolved.
== END 2022-05-02 11:20 | disposition home or self-care (01) ==
LOC: RAD 11:20
PROVIDERS: PCP Family Medicine; Visit Provider Family Medicine
DX: N83.292 Other ovarian cyst, left side (principal)
CPT/HCPCS: 76830; 76856

== ENCOUNTER → 2022-05-18 14:06 | Outpatient (BNVA) | payer BC, MEDICAID, SELFPAY | PROVIDERS: PCP Family Medicine; Referring Provider Family Medicine; Visit Provider Surgery | DX: R10.2 Pelvic and perineal pain (principal); K62.5 Hemorrhage of anus and rectum | CPT/HCPCS: 99203 ==

== ENCOUNTER 2022-05-25 07:53 | Day surgery (SDC) | payer BC, MEDICAID, SELFPAY ==
[2022-05-23 13:00] VITALS: BMI 24.3
[2022-05-25 08:12] VITALS: BP 134/109; PULSE 117; RESP 18; TEMP 36.4; O2SAT 97
[2022-05-25 08:18] LABS: OR HCG Qualitative Urine Negative (Negative)
[2022-05-25] MEDS: sodium chloride 0.9% 1,000 ML 30 ML IV (08:31)
--- NOTE | 2022-05-25 08:49 | P.ANESASSM_ITS ---
Documented by User: Valente Sroia Jr, SQUARING MACHINE OPERATOR 05/25/22 08:52 Pre-Anesthetic Assessment Height/Weight: Height 1.75 m Weight 74.843 kg Temp Pulse Resp BP Pulse Ox 97.5 F L 117 H 18 134/109 97 05/25/22 08:12 05/25/22 08:12 05/25/22 08:12 05/25/22 08:12 05/25/22 08:12 Preop Diagnosis: Pelvic pain and bleeding per rectum Operation Date: 05/25/22 09:15 Proposed Procedures p Colonoscopy 02383,R10.9(Not Applicable) - Brian Chirinos MD Familial anesthetic complications: none Was Beta Aby taken within 24 hours: N/A Was Clonidine taken within 24 hours: N/A Last intake: Intake Last Liquid Date 05/24/22 Last Liquid Time 22:00 Last Solid Date 05/23/22 Last Solid Time 20:00 Last Intake: 22:00 Social No alcohol and No tobacco Exam alert, oriented x 3, clear to auscultation bilaterally and regular rate & rhythm Airway Submandibular: within normal limits Cervical ROM: within normal limits Mallampati: Class II Pulmonary None reported CV/HEM None reported None reported Hepatic None reported GI Gastroesophageal Reflux Disease Metabolic None reported Musc/skel None reported Neuropsych None reported Anesthetic Plan ASA status: 2 Anesthesia: MAC Medications/Allergies Home Medications Medication Instructions Recorded Confirmed Last Taken Type [id number] fumarate 18 1 tab-cap PO DAILY 09/27/20 05/23/22 05/24/22 History mg-FA 600 mcg-vit K 40 mcg capsule (Multi For Her) pantoprazole 40 mg tablet,delayed 40 mg PO BID #180 tab 12/30/21 05/23/22 05/24/22 Rx release Allergies Allergy/AdvReac Type Severity Reaction Status Date / Time levofloxacin [From Levaquin] Allergy ALGY-Swell Verified 05/25/22 07:59 Lip/Tongue/Throat Penicillins Allergy ALGY-Swell Verified 05/25/22 07:59 Lip/Tongue/Throat Current Medications Generic Name Dose Route Start Last Admin Trade Name Freq PRN Reason Stop Dose Admin Sodium Chloride 1,000 mls @ 30 mls/hr 05/25/22 08:00 05/25/22 08:31 Sodium Chloride 0.9% IV 07/14/22 07:59 30 mls/hr .Q24H SILVERIO Administration PFSH Anesthesia Medical History Esophageal obstruction due to food impaction Family History Mother Cancer Grandmother Cancer Heart disease Esophageal obstruction due to food impaction Grandfather Heart disease Social History Smoking and tobacco status: never smoked Adopted: No Marital status: Number of children: 4 service: No History of recent travel: No Current gender identity: Female Female Reproductive History Date of last menstrual period: 03/27/22 Data Anesthesia Cardiac Studies: No Data to Display
--- NOTE | 2022-05-25 09:32 | W.PM.OPSUD ---
Surgery/Procedure H&P Update DATE OF PROCEDURE: May 25, 2022 DATE H&P PERFORMED: 05/18/22 H&P UPDATE INFORMATION: I have reviewed H&P completed within last 30 days, I have examined patient prior to procedure and No changes to prior documentation PREOP DIAGNOSIS: Pelvic pain and bleeding per rectum PRIMARY INDICATION FOR PROCEDURE: The same PLANNED PROCEDURE: Operation Date: 05/25/22 09:15 Proposed Procedures p Colonoscopy 87170,R10.9(Not Applicable) - Brian Chirinos MD
[2022-05-25 09:54] VITALS: BP 111/81; PULSE 101; RESP 14; TEMP 36.4; O2SAT 96
[2022-05-25 10:02] VITALS: BP 121/90; PULSE 99; RESP 16; O2SAT 98
[2022-05-25 10:10] VITALS: BP 132/103; PULSE 100; RESP 16; O2SAT 99
--- NOTE | 2022-05-25 11:14 | ANE.PACU2 ---
Inpatient post-anesthesia follow up: Airway intact: Yes Vital signs: Temperature 97.6 F Pulse Rate 100 Respiratory Rate 16 Blood Pressure 132/103 Pulse Oximetry 99 Oxygen Delivery Me thod Room Air Oxygen Flow Rate Fraction of Inspir ed Oxygen Hydration adequate: Yes Nausea and vomiting: No Pain level: 1 Mental status: Baseline
== END 2022-05-25 10:20 | disposition home or self-care (01) ==
PROVIDERS: Anesthesiology; PCP Family Medicine; Visit Provider Surgery
PROC: 0DJD8ZZ Inspection of Lower Intestinal Tract, Via Natural or Artificial Opening Endoscopic (ICD-10-PCS; CPT 45378; principal; 2022-05-25 09:15)
DX: R10.9 Unspecified abdominal pain (principal); K62.5 Hemorrhage of anus and rectum
CPT/HCPCS: 45378; 81025; 84703; J2704; J7030

== ENCOUNTER → 2022-11-10 11:08 | Outpatient (BNVA) | payer BC, MEDICAID, SELFPAY | PROVIDERS: PCP Family Medicine; Visit Provider Clinical Nurse Specialist Adult Health | DX: R31.9 Hematuria, unspecified (principal); M54.9 Dorsalgia, unspecified | CPT/HCPCS: 80053; 81000; 85025 ==

== ENCOUNTER 2022-11-18 08:04 | Outpatient (CLI) | payer BC, MEDICAID, SELFPAY ==
--- NOTE | 2022-11-18 08:13 | XR_ITS ---
WS: [email or web address] Lumbar spine, 3 views, 11/18/2022 Clinical Data: back pain, abnormal straight leg test Comparison: None. Findings: No compression fractures or subluxation is seen. No disc space narrowing is seen. The transverse proc esses and SI joints are normal. XR/XR lumbar spine 2-3V* [id number] Impression: Negative lumbar spine.
--- NOTE | 2022-11-18 08:13 | XR_ITS ---
WS: [email or web address] KUB, AP view, 11/18/2022 Clinical Data: hematuria Comparison: Acute abdomen series, 12/08/2021 Findings: No abnormal intraabdominal masses or calcifications are seen. There is no dilatated small bowel or ev idence of obstruction. There is fecal material throughout the colon. XR/XR abdomen 1V* [id number] Impression: Negative KUB.
== END 2022-11-18 08:05 | disposition home or self-care (01) ==
LOC: RAD 08:07
PROVIDERS: PCP Family Medicine; Visit Provider Clinical Nurse Specialist Adult Health
DX: R31.9 Hematuria, unspecified (principal); M54.50 Low back pain, unspecified
CPT/HCPCS: 72100; 74018; 81000; 87086; J2930

== ENCOUNTER → 2022-12-01 09:40 | Outpatient (BNVA) | payer BC, MEDICAID, SELFPAY | PROVIDERS: PCP Family Medicine; Visit Provider Family Medicine | DX: R31.9 Hematuria, unspecified (principal) | CPT/HCPCS: 81000 ==

== ENCOUNTER 2022-12-28 14:48 | Outpatient (CLI) | payer BC, MEDICAID, SELFPAY ==
--- NOTE | 2022-12-28 15:00 | CT_ITS ---
WS: [id number] CT LUMBAR SPINE, noncontrast. HISTORY: back pain TECHNIQUE: Contiguous 2.5 mm axial imaging are performed. Sagittal and coronal reformats are submitte d and reviewed. All CT scans at [facility] use at least one of these dose optimization techni ques: automated exposure control; mA and/or kV adjustment per patient size (includes targeted exams w here dose is matched to clinical indication); or iterative reconstruction. IV contrast: None DLP: 538.51 mGy.cm COMPARISON: Radiograph 11/18/2022 Normal lumbar alignment with no loss of disc space height or vertebral body height. Sclerotic focus c onsistent with a bone island in the L2 vertebral body. Pedicles are intact. No pars defects. L1-2: Small LEFT subarticular disc protrusion is likely contacting the traversing L2 nerve root. No h igh-grade stenosis. No central stenosis. L2-3: Mild asymmetric disc bulging to the LEFT. Mild disc encroachment upon the subarticular recess. No stenosis. L3-4: Mild annular disc bulging slightly asymmetric to the LEFT. Mild LEFT ligamentum flavum hypertro phy. No stenosis. L4-5: Very mild annular disc bulging and osteophytic ridging. Shallow LEFT foraminal disc protrusion. No contact on the nerve roots. No stenosis. L5-S1: Mild disc bulging and facet arthritis. No significant stenosis. Visualized retroperitoneum is normal. CT/CT lumbar spine wo con* [id number] IMPRESSION: 1. No high-grade central or foraminal stenosis. 2. No fractures. 3. Small LEFT subarticular disc protrusion at L1-2 with mild contact on the tr aversing L2 nerve root.
== END 2022-12-28 14:49 | disposition home or self-care (01) ==
LOC: RAD 14:48
PROVIDERS: PCP Family Medicine; Visit Provider Family Medicine
DX: M51.26 Other intervertebral disc displacement, lumbar region (principal)
CPT/HCPCS: 72131

== ENCOUNTER → 2023-01-04 08:22 | Outpatient (BNVA) | payer BC, MEDICAID, SELFPAY | PROVIDERS: PCP Family Medicine; Visit Provider Family Medicine | DX: R10.2 Pelvic and perineal pain (principal); R31.9 Hematuria, unspecified | CPT/HCPCS: 81000 ==

== ENCOUNTER 2023-01-16 16:18 | Outpatient (CLI) | payer BC, MEDICAID, SELFPAY ==
--- NOTE | 2023-01-16 16:30 | CT_ITS ---
WS: [id number] CT PELVIS WITHOUT CONTRAST. HISTORY: sacral / pelvic pain TECHNIQUE: Contiguous imaging is performed of the pelvis without contrast. Coronal and sagittal refor mats are reviewed. All CT scans at [facility] use at least one of these dose optimization kyle hniques: automated exposure control; mA and/or kV adjustment per patient size (includes targeted exam s where dose is matched to clinical indication); or iterative reconstruction. DLP: 329.43 mGy.cm COMPARISON: 04/17/2022 and 12/28/[address] Symmetric appearance to the bones and soft tissues of the pelvis. No destructive bone lesions. SI lisa nts are nearly symmetric. Very slight increased sclerosis along the RIGHT SI joint. No sacral insuffi ciency fracture. Sacral and coccygeal segments are normally aligned. No destructive process. Small fat-containing umbilical hernia. Uterus is retroverted. Low-attenuation well-circumscribed mass in the RIGHT adnexa is probably ovarian in etiology measuring 4.5 x 5.2 cm. This cyst was not presen t on the prior ultrasound of 05/02/2022. No adenopathy. CT/CT bony pelvis [id number] IMPRESSION: 1. Normal appearance of the sacrum and coccyx. No destructive bone lesions. 2. Low-attenuation mass in the RIGHT adnexa. Most likely an ovarian cyst measu ring 4.5 x 5.2 cm. Cyst is new since the pelvic ultrasound of 05/02/2022. This c an be further evaluated by transvaginal pelvic imaging. 3. No free fluid or adenopathy.
== END 2023-01-16 16:19 | disposition home or self-care (01) ==
LOC: RAD 16:21
PROVIDERS: PCP Family Medicine; Visit Provider Family Medicine
DX: N83.8 Other noninflammatory disorders of ovary, fallopian tube and broad ligament (principal)
CPT/HCPCS: 72192

== ENCOUNTER 2023-02-20 16:04 | Outpatient (CLI) | payer BC, MEDICAID, SELFPAY ==
--- NOTE | 2023-02-20 16:15 | US_ITS ---
WS: [email or web address] PELVIC ULTRASOUND REASON FOR EXAM: large right ovarian mass on CT COMPARISON: Pelvic CT on 01/16/2023 ORDER DATE: 02/20/2023 4:15 PM TECHNIQUE: Grayscale and Doppler transabdominal and transvaginal pelvic ultrasound. FINDINGS: Uterus is retroverted and measures 8.7 cm x 6.4 cm x 4.1 cm,. Right ovary measures 4.0 cm x 3.3 cm x 3.1 cm and contains a cystic component posteriorly which currently measures 16 x 23 x 12 mm in outlin e. This is considerably smaller than on the CT study a month ago but this is not unusual for benign c ysts,. The left ovary was not able to be visualized due to bowel and other artifact in the left adnex a.There is a minimal amount of cul-de-sac fluid. Vascularity in the adnexa was unremarkable. US/US pelvis lmt w transvag IMPRESSION: Ovarian cystic structure formerly measuring from 45 to 51 mm in outline on CT i maging of 01/16/2023 has considerably decreased in overall size as noted.
== END 2023-02-20 16:05 | disposition home or self-care (01) ==
PROVIDERS: PCP Family Medicine; Visit Provider Family Medicine
DX: N83.8 Other noninflammatory disorders of ovary, fallopian tube and broad ligament (principal)
CPT/HCPCS: 76830; 76857

== ENCOUNTER 2023-12-01 22:21 | Day surgery (SDC) | payer BC, MEDICAID, SELFPAY ==
[2023-12-01 22:37] VITALS: BP 151/103; PULSE 96; RESP 20; TEMP 36.7; O2SAT 97; BMI 24.7
--- NOTE | 2023-12-01 22:53 | PC.NURSE ---
Pt states she has lettuce, chicken or toast stuck in her throat. States this happeneda round 1800 and has been tryting to get it up since then. Patient has vomited, but the food is still stuck. pt states she is vomiting foam. This has happened before and she had to have a scope to push the food down, in 2020.
--- NOTE | 2023-12-01 22:54 | XRR_ITS ---
PROCEDURE INFORMATION: Exam: XR Soft Tissue Neck Exam date and time: 12/01/2023 11:12 PM Age: 38 years old Clinical indication: Other: Possible food impaction; Patient HX: Believes food stuck in throat after eating dinner earlier this evening. History of recurrent esophageal food impactions. ; Additional info: Food bolus, HX of bolus. TECHNIQUE: Imaging protocol: Radiologic exam of the soft tissues of the neck. COMPARISON: CR XR chest 2V* [id number] 03/29/2019 1:48 PM FINDINGS: Airway: Orthodox steeple appearance of the subglottic space that may reflect edema. Soft tissues: There is a soft tissue density in the glottis. The epiglottis is unremarkable. Bones/joints: Reversal of the normal cervical lordosis that may reflect muscle spasm be positional. XR/XR soft tissue neck [id number] IMPRESSION: 1. Soft tissue density in the area of the glottis, edema versus foreign body. 2. Orthodox steeple appearance of the subglottic space seen only on the AP view. This may reflect edema. 3. Given the above findings, CT scan of the soft tissues of the neck may be helpful for further characterization, if clinically indicated.
[2023-12-01] MEDS: glucagon 1 mg/mL KIT 1 mL IVP (23:04)
--- NOTE | 2023-12-01 23:05 | W.ED.NECK ---
HPI - Neck Pain/Injury General: Chief Complaint: Airway/Esophagus Foreign Body Stated Complaint: throat pain Time Seen by Provider: 12/01/23 22:36 Source: patient Mode of arrival: ambulatory Limitations: no limitations History of Present Illness: Patient presents emergency department today for evaluation treatment of suspected food bolus. Patient reports that she was eating some chicken salad and toast around 6 PM and believes she has a food bolus. Patient has a long history of food boluses requiring endoscopy. In fact, patient was seen by general surgery just today to discuss recurrent food boluses. It was discussed that patient would benefit from a scope and dilatation due to her chronic recurrent history. Patient is already on daily Protonix. Patient has been spitting up some frothy material. She feels like it is on the left side of her throat midway between her lower jaw and sternum. Patient shows no signs of respiratory distress. Review of Systems General: Reports: 10 or more systems reviewed and unremarkable except in HPI and below PFSH ED PFSH: Medical History Hx of cystitis Abdominal pain Esophageal obstruction due to food impaction Surgical History History of appendectomy Hx of tubal ligation History of esophagogastroduodenoscopy (EGD) 04/2022 Family History Mother Cancer Grandmother Cancer Heart disease Esophageal obstruction due to food impaction Grandfather Heart disease Social History Smoking and tobacco/nicotine status: never used tobacco/nicotine Substance/Drug Use: never Adopted: No Marital status: Number of children: 4 service: No Current gender identity: Female Physical Exam Const: COMMON NORMALS: no acute distress, patient oriented x3 and alert HENMT: MOUTH: Normal oral and palatal mucosa present; no drooling and no muffled voice Eye: COMMON NORMALS: Equal, round and reactive pupils present, EOMs intact bilaterally and conjunctivae normal CONJUNCTIVA: Yes conjunctivae normal PUPIL: Yes Equal, round and reactive pupils present Neck/C-Spine: COMMON NORMALS: no JVD Lymph: LYMPHATIC: no lymphadenopathy noted Resp: COMMON NORMALS: normal respiratory effort, No retractions and No use of accessory muscles Cardio: COMMON NORMALS: no JVD and regular rate RATE: regular rate : COMMON NORMALS: Yes no CVA tenderness BLADDER/KIDNEY EXAM: Yes no CVA tenderness Back/Pelvis: COMMON NORMALS: no CVA tenderness, thoracic and lumbar spine normal to inspection and thoraco-lumbar ROM normal Extremity: COMMON NORMALS: normal to inspection, full ROM and no pedal edema Neuro: COMMON NORMALS: patient oriented x3 SENSORIUM/ORIENTATION: Yes alert Skin: COMMON NORMALS: no rashes or lesions noted and turgor normal GENERAL SKIN EXAM: no rashes or lesions noted and turgor normal Course Vital Signs: Vital signs: Vital Signs Temperature 98.0 F 12/01/23 22:37 Pulse Rate 96 12/01/23 22:37 Respiratory Rate 20 H 12/01/23 22:37 Blood Pressure 151/103 12/01/23 22:37 Pulse Oximetry 97 12/01/23 22:37 Oxygen Delivery Me thod Room Air 12/01/23 22:37 MDM - Neck Pain/Injury Medical Decision Making Patient has failed a p.o. challenge after glucagon IV. Soft tissue neck shows steeple sign and narrowing of the mid upper airway. I did reach out to Dr. Irving regarding the patient's presentation here in the ER. He is willing to take the patient to the operating room to remove the food bolus. Patient has IV access established. Last oral intake was around 6 PM. Patient was notified of the transfer to the OR for foreign body removal. Patient is in agreements to the plan of care. Dr. Henry has been notified of the patient's condition since her presentation here in the emergency department and has provided a recommendations for patient care during her time here. Differential Diagnosis Unlikely disc disorder of cervical region, fracture of cervical spine without lesion of spinal cord, cervical radiculopathy, vertebral artery dissection or strain of neck muscle XR interpretation done by ED provider, pending radiology final review Discharge Plan Discharge Clinical Impression: Esophageal foreign body Condition: Stable Prescriptions: No Action pantoprazole 40 mg tablet,delayed release (DR/EC) 40 mg PO BID tamsulosin [Flomax] 0.4 mg capsule 0.4 mg PO DAILY Qty: 30 0RF meloxicam 7.5 mg tablet 7.5 mg PO DAILY Qty: 30 0RF cyclobenzaprine 5 mg tablet 5 mg PO TID PRN (Reason: muscle spasm) Qty: 60 0RF tramadol 50 mg tablet 50 mg PO Q6H PRN (Reason: pain) Qty: 60 5RF azithromycin [Zithromax Z-Mir] 250 mg tablet See Rx Instructions PO .COMPLEX Qty: 6 0RF Rx Instructions: For 250 mg dose pack: take 500 mg today (day 1), then 250 mg for 4 days (days 2-5) PO prednisone 20 mg tablet 20 mg PO DAILY Qty: 5 0RF albuterol sulfate [Ventolin HFA] 90 mcg/actuation HFA aerosol inhaler 2 puff inhalation Q6H PRN (Reason: shortness of breath or wheezing) Qty: 8.5 11RF Multi For Her 18 mg iron-600 mcg-40 mcg Capsule 1 tab-cap PO DAILY Referrals: Bebeto Olivas MD [Primary Care Provider] - Coding Level of Care Code ED Pottery Striper for Mauricio Giang
[2023-12-01 23:57] VITALS: BP 179/99; RESP 16; O2SAT 97
[2023-12-02] VITALS (10 sets, daily range): BP systolic 122–143; BP diastolic 75–98; PULSE 93–105; RESP 16; TEMP 36.1; O2SAT 97–100
--- NOTE | 2023-12-02 00:27 | PM.HP ---
Providers/Chief Complaint Primary Care Provider: Bebeto Olivas MD Chief Complaint: throat pain History of Present Illness Anastasiya Robles is a 38 year old female who presents to the ER with esophageal food bolus impaction. Patient has history of multiple previous esophageal food bolus impactions that have been relieved with endoscopy. Patient was recently seen by my colleague Dr. Weaver who plan to do EGD and dilation, this afternoon she decided to eat real chicken sandwich after which she noted that no food was able to be swallowed and the precursor creations were coming up. In the emergency room she was given glucagon and several p.o. trials were attempted without success. I was consulted for this finding. Review of Systems General: Reports: 10 or more systems reviewed and unremarkable except in HPI and below Medications/Allergies Home Medications Medication Instructions Recorded Confirmed Last Taken Type lttjfncfl-nlt-cycx fumarate 18 1 tab-cap PO DAILY 09/27/20 12/01/23 05/24/22 History mg-FA 600 mcg-vit K 40 mcg capsule (Multi For Her) cyclobenzaprine 5 mg tablet 5 mg PO TID PRN muscle spasm #60 11/10/22 12/01/23 Unknown Rx tabs meloxicam 7.5 mg tablet 7.5 mg PO DAILY #30 tabs 11/10/22 12/01/23 Unknown Rx pantoprazole 40 mg tablet,delayed 40 mg PO BID 11/10/22 12/01/23 Unknown History release tamsulosin 0.4 mg capsule (Flomax) 0.4 mg PO DAILY #30 caps 11/10/22 12/01/23 Unknown Rx prednisone 20 mg tablet 20 mg PO DAILY #5 tabs 11/18/22 12/01/23 Unknown Rx tramadol 50 mg tablet 50 mg PO Q6H PRN pain #60 tabs 12/01/22 12/01/23 Unknown Rx azithromycin 250 mg tablet See Rx Instructions PO .COMPLEX #6 03/22/23 12/01/23 Unknown Rx (Zithromax Z-Mir) tabs albuterol sulfate 90 mcg/actuation 2 puff inhalation Q6H PRN 06/27/23 12/01/23 Unknown Rx aerosol inhaler (Ventolin HFA) shortness of breath or wheezing #8.5 grams Allergies Allergy/AdvReac Type Severity Reaction Status Date / Time levofloxacin [From Levaquin] Allergy BRANDONY-Swell Verified 12/01/23 22:48 Lip/Tongue/Throat Penicillins Allergy ALGY-Swell Verified 12/01/23 22:48 Lip/Tongue/Throat PFSH Acute PFSH: Medical History Hx of cystitis Abdominal pain Esophageal obstruction due to food impaction Surgical History History of appendectomy Hx of tubal ligation History of esophagogastroduodenoscopy (EGD) 04/2022 Family History Mother Cancer Grandmother Cancer Heart disease Esophageal obstruction due to food impaction Grandfather Heart disease Social History Smoking and tobacco/nicotine status: never used tobacco/nicotine Substance/Drug Use: never Adopted: No Marital status: Number of children: 4 service: No Current gender identity: Female Vitals/I&O/Wt Last Vital Signs Temp 98.0 F 12/01/23 22:37 Pulse 96 12/01/23 22:37 Resp 16 12/01/23 23:57 BP 179/99 12/01/23 23:57 Pulse Ox 97 12/01/23 23:57 O2 Del Method Room Air 12/01/23 22:37 Weight last 48 hrs Weight 168 lb Physical Exam Narrative: General : Patient is well developed , no acute distress, oriented x3 Head : Normal cephalic, a-traumatic. Nose : Mucous membranes are without erythema. Lungs : Equal chest rise bilaterally, no use of accessory muscles, trachea is midline. CV : Rate and rhythm are normal. Abdomen : Soft, ND, NT, no g/r/m Extremities : No edema. Upper extremities are normal bilaterally. Back : non-tender to palpation, no CVA tenderness. A&P Assessment and plan (1) Esophageal foreign body: Plan After complete history physical examination and review of all available clinical data the following is my assessment. Patient has a soft laryngeal foreign body, will require urgent disimpaction. I have offered to proceed with EGD and foreign body disimpaction, I have explained to the patient the risk and benefits of the procedure including the risk of perforation of the esophagus stomach or duodenum requiring surgical intervention and transfer to higher level of care, need for additional procedures, risk for bleeding, recurrent food bolus impaction. I have explained to the patient that at this moment we will just remove the food but will not do any therapeutic intervention. I have suggested that the patient keeps endoscopy appointment with Dr. Weaver for esophageal dilation that will be done upcoming December. Patient shows understanding wishes to proceed. Patient will be discharged from the GI lab as soon as the procedure is done. Attestations Medical Necessity Statement*: Patient will be discharged after surgery. Coding Level of Care Code Acute Code for Chg Fwd Diagnoses Esophageal foreign body T18.108A
[2023-12-02] MEDS: sodium chloride 0.9% 1,000 ML 30 ML IV (00:48)
--- NOTE | 2023-12-02 01:12 | ANES.PREANE2 ---
Pre-Anesthetic Assessment Height/Weight: Height 1.75 m Weight 76.204 kg Temp Pulse Resp BP Pulse Ox O2 Del Method 97 F L 103 H 16 136/78 100 Room Air 12/02/23 01:04 12/02/23 01:09 12/02/23 01:09 12/02/23 01:09 12/02/23 01:09 12/02/23 01:09 Preop Diagnosis: food bolus Operation Date: 12/02/23 00:35 Proposed Procedures p EGD(Not Applicable) - Gagan Newell MD Familial anesthetic complications: None Was Beta Aby taken within 24 hours: N/A Was Clonidine taken within 24 hours: N/A Social No alcohol and No tobacco Exam alert, oriented x 3 and regular rate & rhythm Airway Mallampati: Class II Dentition: full History/ROS No significant history except as noted Pulmonary None reported CV/HEM None reported None reported Hepatic None reported GI Gastroesophageal Reflux Disease esophageal food bolus Metabolic None reported Musc/skel None reported Neuropsych None reported Anesthetic Plan ASA status: 2 Anesthesia: Anesthesia Evaluation and General Risk of > 500 ml blood loss (7ml/kg in children): No Medications/Allergies Home Medications Medication Instructions Recorded Confirmed Last Taken Type ouqlffwsf-rdm-njiv fumarate 18 1 tab-cap PO DAILY 09/27/20 12/01/23 05/24/22 History mg-FA 600 mcg-vit K 40 mcg capsule (Multi For Her) cyclobenzaprine 5 mg tablet 5 mg PO TID PRN muscle spasm #60 11/10/22 12/01/23 Unknown Rx tabs meloxicam 7.5 mg tablet 7.5 mg PO DAILY #30 tabs 11/10/22 12/01/23 Unknown Rx pantoprazole 40 mg tablet,delayed 40 mg PO BID 11/10/22 12/01/23 Unknown History release tamsulosin 0.4 mg capsule (Flomax) 0.4 mg PO DAILY #30 caps 11/10/22 12/01/23 Unknown Rx prednisone 20 mg tablet 20 mg PO DAILY #5 tabs 11/18/22 12/01/23 Unknown Rx tramadol 50 mg tablet 50 mg PO Q6H PRN pain #60 tabs 12/01/22 12/01/23 Unknown Rx azithromycin 250 mg tablet See Rx Instructions PO .COMPLEX #6 03/22/23 12/01/23 Unknown Rx (Zithromax Z-Mir) tabs albuterol sulfate 90 mcg/actuation 2 puff inhalation Q6H PRN 06/27/23 12/01/23 Unknown Rx aerosol inhaler (Ventolin HFA) shortness of breath or wheezing #8.5 grams sucralfate 100 mg/mL oral 1 g (10 mL) PO BID 4 weeks #560 mL 12/02/23 Unknown Rx suspension (Carafate) Allergies Allergy/AdvReac Type Severity Reaction Status Date / Time levofloxacin [From Levaquin] Allergy ALGY-Swell Verified 12/01/23 22:48 Lip/Tongue/Throat Penicillins Allergy ALGY-Swell Verified 12/01/23 22:48 Lip/Tongue/Throat PFSH Anesthesia Medical History Hx of cystitis Abdominal pain Esophageal obstruction due to food impaction Surgical History History of appendectomy Hx of tubal ligation History of esophagogastroduodenoscopy (EGD) 04/2022 Family History Mother Cancer Grandmother Cancer Heart disease Esophageal obstruction due to food impaction Grandfather Heart disease Social History Smoking and tobacco/nicotine status: never used tobacco/nicotine Substance/Drug Use: never Adopted: No Marital status: Number of children: 4 service: No Current gender identity: Female Data Anesthesia Cardiac Studies: No Data to Display
--- NOTE | 2023-12-02 02:00 | ANE.PACU2 ---
Inpatient post-anesthesia follow up: Airway intact: Yes Vital signs: Temperature 97 F Pulse Rate 93 Respiratory Rate 16 Blood Pressure 133/88 Pulse Oximetry 97 Oxygen Delivery Me thod Room Air Oxygen Flow Rate Fraction of Inspir ed Oxygen Hydration adequate: Yes Nausea and vomiting: No Pain level: 1 Mental status: Baseline
== END 2023-12-02 02:10 | disposition home or self-care (01) ==
LOC: ER 23:48 → OR 12-02 00:40
PROVIDERS: Emergency Provider Physician Assistant; PCP Family Medicine; Visit Provider Surgery
PROC: 0DJ08ZZ Inspection of Upper Intestinal Tract, Via Natural or Artificial Opening Endoscopic (ICD-10-PCS; CPT 43235; principal; 2023-12-02 00:35)
PROC: (CPT 43247; 2023-12-02 00:35)
DX: T18.128A Food in esophagus causing other injury, initial encounter (principal); W44.8XXA Other foreign body entering into or through a natural orifice, initial encounter; K21.9 Gastro-esophageal reflux disease without esophagitis
CPT/HCPCS: 43247; 70360; J0330; J1100; J1610; J2405; J2704; J3490; J7030

== ENCOUNTER 2023-12-27 09:17 | Day surgery (SDC) | payer BC, MEDICAID, SELFPAY ==
--- NOTE | 2023-12-27 09:25 | P.ANESASSM_ITS ---
Pre-Anesthetic Assessment Height/Weight: Height 1.75 m Operation Date: 12/27/23 10:30 Proposed Procedures p [id number] egd w balloon dilation R13.10,K21.9,K22.2(Not Applicable) - Evelio Weaver, DO Was Beta Aby taken within 24 hours: N/A Was Clonidine taken within 24 hours: N/A Social No alcohol and No tobacco Exam alert, oriented x 3, clear to auscultation bilaterally and regular rate & rhythm Airway Submandibular: within normal limits Cervical ROM: within normal limits Mallampati: Class I Dentition: full History/ROS No significant history except as noted Pulmonary None reported CV/HEM None reported None reported Hepatic None reported GI Gastroesophageal Reflux Disease Metabolic None reported Musc/skel None reported Neuropsych None reported Anesthetic Plan ASA status: 1 Anesthesia: Anesthesia Evaluation and General Risk of > 500 ml blood loss (7ml/kg in children): Yes, adequate IV access and fluids planned Medications/Allergies Home Medications Medication Instructions Recorded Confirmed Last Taken Type [id number]-blz-vhfp fumarate 18 1 tab-cap PO DAILY 09/27/20 12/25/23 12/25/23 History mg-FA 600 mcg-vit K 40 mcg capsule (Multi For Her) sucralfate 100 mg/mL oral 1 g (10 mL) PO BID 4 weeks #560 mL 12/02/23 12/25/23 12/25/23 Rx suspension (Carafate) ibuprofen 200 mg tablet 600 mg PO Q6H PRN Pain 12/25/23 12/25/23 12/23/23 History Allergies Allergy/AdvReac Type Severity Reaction Status Date / Time levofloxacin [From Levaquin] Allergy Jef Verified 12/25/23 09:02 Lip/Tongue/Throat Penicillins Allergy BRANDONY-Swell Verified 12/25/23 09:02 Lip/Tongue/Throat [facility] Anesthesia Medical History Hx of cystitis Abdominal pain Esophageal obstruction due to food impaction Surgical History History of appendectomy Hx of tubal ligation History of esophagogastroduodenoscopy (EGD) 04/2022 Family History Mother Cancer Grandmother Cancer Heart disease Esophageal obstruction due to food impaction Grandfather Heart disease Social History Smoking and tobacco/nicotine status: never used tobacco/nicotine Substance/Drug Use: never Adopted: No Marital status: Number of children: 4 service: No Current gender identity: Female Female Reproductive History Date of last menstrual period: 12/14/23 Data Anesthesia Cardiac Studies: No Data to Display
[2023-12-27 09:41] LABS: OR HCG Qualitative Urine Negative (Negative)
[2023-12-27 09:45] VITALS: BP 152/103; PULSE 94; RESP 18; TEMP 36.8; O2SAT 99; BMI 24.7
[2023-12-27] MEDS: sodium chloride 0.9% 1,000 ML 30 ML IV (09:47)
--- NOTE | 2023-12-27 11:08 | W.PM.OPSUD ---
Surgery/Procedure H&P Update DATE OF PROCEDURE: December 27, 2023 DATE H&P PERFORMED: 12/01/23 H&P UPDATE INFORMATION: I have reviewed H&P completed within last 30 days, I have examined patient prior to procedure and No changes to prior documentation PLANNED PROCEDURE: Operation Date: 12/27/23 10:30 Proposed Procedures p [id number] egd w balloon dilation R13.10,K21.9,K22.2(Not Applicable) - Evelio Weaver DO
[2023-12-27 11:35] VITALS: BP 124/84; PULSE 100; RESP 14; TEMP 36.1; O2SAT 96
[2023-12-27 11:40] VITALS: BP 122/93; PULSE 93; RESP 20; O2SAT 99
--- NOTE | 2023-12-27 14:50 | ANE.PACU2 ---
Inpatient post-anesthesia follow up: Airway intact: Yes Vital signs: Temperature 97.0 F Pulse Rate 93 Respiratory Rate 20 Blood Pressure 122/93 Pulse Oximetry 99 Oxygen Delivery Me thod Room Air Oxygen Flow Rate Fraction of Inspir ed Oxygen Hydration adequate: Yes Nausea and vomiting: No Pain level: 2 Mental status: Baseline
== END 2023-12-27 12:06 | disposition home or self-care (01) ==
PROVIDERS: Anesthesiology; PCP Family Medicine; Visit Provider Surgery
DX: R13.10 Dysphagia, unspecified (principal); K21.9 Gastro-esophageal reflux disease without esophagitis; K22.2 Esophageal obstruction; K29.50 Unspecified chronic gastritis without bleeding
CPT/HCPCS: 43239; 43249; 81025; 84703; 88305; 88342; J2704; J3010; J7030

== ENCOUNTER → 2024-01-09 12:57 | Outpatient (BNVA) | payer BC, MEDICAID, SELFPAY | PROVIDERS: PCP Family Medicine; Visit Provider Family Medicine | DX: R51.9 Headache, unspecified (principal); R10.2 Pelvic and perineal pain; M54.9 Dorsalgia, unspecified | CPT/HCPCS: 86003; 86008 ==

== ENCOUNTER → 2024-09-11 12:28 | Outpatient (BNVA) | payer BC, MEDICAID, SELFPAY | PROVIDERS: PCP Family Medicine | DX: R39.9 Unspecified symptoms and signs involving the genitourinary system (principal) | CPT/HCPCS: 81000 ==

== ENCOUNTER 2025-02-19 15:46 | Outpatient (CLI) | payer BC, MEDICAID, SELFPAY ==
--- NOTE | 2025-02-19 16:00 | MR_ITS ---
WS: [id number] MRI LUMBAR SPINE NONCONTRAST HISTORY: persistent back pain, fall several weeks ago. RIGHT leg numbness. COMPARISON: None available. TECHNIQUE: Sagittal and axial multisequence imaging is submitted. Normal lumbar alignment with no compression fractures or marrow edema. Disc spaces and vertebral body heights are well-preserved. Conus terminates normally at L1. L1-L2: Normal. L2-L3: Normal. L3-L4: Very mild annular disc bulging with slight encroachment upon the traversing L4 nerve roots in the subarticular recesses. No high-grade stenosis. Mild facet arthritis. L4-L5: Mild annular disc bulging. Tiny central disc protrusion with annular fissure. Mild disc encroachment upon the traversing L5 nerve roots in the subarticular recesses. Small amount of fluid in the facet joints. L5-S1: Minimal disc bulging. No stenosis or disc protrusion. The visualized sacrum appears normal without edema. No soft tissue abnormalities. Paravertebral soft tissues are negative. MR/MR lumbar spine wo con* [id number] IMPRESSION: 1. No acute fractures or marrow edema. 2. Mild bilateral subarticular recess encroachment by annular disc bulging at L3-4 and L4-5. No high-grade stenosis. Mild disc encroachment upon the traversi ng L4 and L5 nerve roots, respectively. 3. Tiny central disc protrusion with annular fissure at L4-5.
== END 2025-02-19 15:47 | disposition home or self-care (01) ==
LOC: RAD 15:47
PROVIDERS: PCP Family Medicine; Visit Provider Family Medicine
DX: M51.369 Other intervertebral disc degeneration, lumbar region without mention of lumbar back pain or lower extremity pain (principal); M47.896 Other spondylosis, lumbar region; W19.XXXA Unspecified fall, initial encounter
CPT/HCPCS: 72148